=== PATIENT | female | born 2000 | race Hispanic/Latino ===

== ENCOUNTER 2022-11-01 13:36 | Emergency (ER) | payer SELFPAY ==
[2022-11-01 13:37] VITALS: BP 127/91; PULSE 71; RESP 16; TEMP 36.4; O2SAT 100; BMI 29.0
--- NOTE | 2022-11-01 14:18 | US_ITS ---
STUDY: FIRST TRIMESTER OBSTETRICAL ULTRASOUND REASON FOR EXAM: Female, 21 years old. Pelvic pain TECHNIQUE: Transvaginal US was obtained to better visualized the ovaries. TECHNICAL QUALITY: Adequate. PRIOR ULTRASOUND: None. FINDINGS: There is visualization of a single gestational sac in a normal intrauterine position. The mean sac diameter (MSD) measures 40 mm, indicating an estimated gestational age (EGA) of 9 weeks, 3 days. The gestational sac shape is within normal limits. There is a visualized yolk sac. The yolk sac measures 5.7 mm. The placenta is non-visualized. Due to early gestation, the placenta is not seen. There is visualization of a live embryo. The crown-rump length (CRL) measures 25 mm, indicating an estimated gestational age (EGA) of 9 weeks, 0 days. There is demonstrated cardiac activity with a heart rate of 180 bpm. The estimated gestation age (EGA) by LMP is 11 weeks, 0 days. The estimated date of delivery (EMILIANO) by LMP is 11.27.23. The estimated gestation age (EGA) by US is 9 weeks, 2 days. The estimated date of delivery (EMILIANO) by US is 12.9.23. The uterus measures 13.3x8.8 cm. There is no demonstrated uterine fibroid. The cervix is closed. Small subchorionic hemorrhage. The right ovary measures 3.6 cm. There is no right ovarian cyst. There is no visualized right adnexal mass or complex lesion. The left ovary measures 3.6 cm. There is 17mm left ovarian cyst. There is no visualized left adnexal mass or complex lesion. There is no fluid in the cul de sac. US/Transvaginal w/Preg US IMPRESSION: There is a single live intrauterine with a heart rate of 180 bpm. Small subchorionic hemorrhage. Electronically Signed: Talib Ramsay MD at 17:55 EDT ,
[2022-11-01 14:45] LABS: Bacteria 0 SEEN /hpf (None Seen); Mucous, Urine 0 SEEN /hpf (<or=2+); Red Blood Cells-Urine 0 SEEN /hpf (0-5)
[2022-11-01 14:47] LABS: Absolute Lymphocyte Count 2.89 X10^3/uL (0.83-4.51); Absolute Neutrophil Count 7.6 X10^3/uL (2.0-7.7); Basophil# 0.06 X10^3/uL; Basophil% 0.5 % (0-1); Eosinophils% 1.7 % (0-5); Hematocrit 39.2 % (37-47); Lymphocyte # 2.89 X10^3/ul (0.83-4.51); Lymphocyte % 25.2 % (19-41); Mean Corp Hgb Conc 33.2 g/dL (32-36); Mean Corpuscular Hgb 27.1 pg (27.0-32.0); Mean Corpuscular Volume 81.7 fL (81-99); Mean Platelet Vol. 9.1 fl (6.2-12.0); Monocyte# 0.71 X10^3/uL; Monocyte% 6.2 % (0-10); NRBC Flagged by Analyzer 0 % (0-5); Neutrophil # 7.59 X10^3/uL (2.7-7.7); Neutrophil % 66.1 % (47-70); Platelet Count 305 K/mm3 (150-450); RBC Distribution Width CV 13.6 % (11.6-14.6); RBC Distribution Width SD 40.5 fl (35.1-43.9); White Blood Count 11.5 K/mm3 (4.4-11.0)
[2022-11-01 14:53] LABS: Color, Urine Yellow (Yellow); Glucose, Dipstick Normal (Normal); Ketone-Dipstick Negative (Negative); Leukocyte Esterase-Dipstick Negative /ul (Negative); Nitrite-Dipstick Negative (Negative); Occult Blood-Urine Negative /ul (Negative); Protein-Dipstick Negative (Negative); Urine Bilirubin Dipstick Negative (Negative); Urine Clarity Clear (Clear); Urine Urobilinogen Normal (Normal)
[2022-11-01 14:59] LABS: Amorphous Sediment 2+; Squamous Epithelial Cells - UA 0-5 SEEN /hpf (5-10); White Blood Cells 0-5 SEEN /hpf (0-5)
[2022-11-01 15:08] LABS: ALB/GLOB Ratio 1.1 RATIO (0.9-2.4); AST(SGOT) 38 U/L (15-37); Alanine Aminotransfer ALT/SGPT 63 U/L (13-56); Albumin, Serum 3.8 g/dL (3.2-5.0); Alkaline Phosphatase 84 U/L (45-117); Anion Gap 7 (5-15); BUN 7 mg/dL (7-18); BUN/Creat Ratio 15.3 RATIO (10-20); Calcium,Total 9.9 mg/dL (8.5-10.1); Chloride 108 mmol/L (98-107); Creatinine, Serum 0.46 mg/dL (0.55-1.02); EST Glomerular Filtration Rate 182 mL/min (>60); Est Glom Filt Rate - Afr Amer 220 mL/min (>60); Estimated Creatinine Clearance 138.96 ml/min; Globulin 3.5 g/dL (2.2-4.2); Glucose 88 mg/dL (74-106); Potassium 3.8 mmol/L (3.5-5.1); Protein, Total 7.3 g/dL (6.4-8.2); Sodium Level 139 mmol/L (136-145)
--- NOTE | 2022-11-01 15:50 | EX.ED.DYSGE1 ---
HPI History of Present Illness Chief Complaint: Abd Pain Informant: patient and family Onset/Context/Timing Onset: Days (2) Context: Sudden Onset Timing: Intermittent Quality: Cramping Location: Lower abdomen Worsened by: Nothing Relieved by: Nothing Narrative Narrative: Patient presents with lower abdominal pain that has been getting worse over the past 2 days. Patient states it comes and goes. Patient describes it as cramping. Patient states it is mainly over the lower abdomen. Patient states nothing makes it better nothing makes it worse. Patient admits to some nausea but denies any vomiting. Patient denies any diarrhea, melena, or hematochezia. Patient denies any dysuria, frequency, or hematuria. Patient states she is but she has had no care. Patient denies any abnormal vaginal bleeding or discharge. PFSH PFSH Medical History no medical history no medical history Home Medications NK 11/01/22 [History Last Taken Unknown] Allergy/AdvReac Type Severity Reaction Status Date / Time No Known Allergies Allergy Verified 11/01/22 13:37 Surgical History no surgical history no surgical history Social History Smoking Status: Never smoker ROS ROS ED Constitutional Constitutional ED: Reports fever(s) and subjective; Denies chills Eyes Eyes: Denies blurry vision or change in vision ENT ENT ED: Denies rhinorrhea or sore throat Cardiovascular Cardiovascular: Denies chest pain or palpitations Respiratory/Chest Respiratory/Chest: Denies cough or dyspnea Gastrointestinal Gastrointestinal: Denies nausea or vomiting Genitourinary Genitourinary ED: Denies dysuria or hematuria Musculoskeletal Musculoskeletal: Reports neck pain; Denies back pain Integumentary Denies abscess or rash Neurologic Neurologic: Reports headache(s); Denies weakness Allergic/Immunologic Allergic/Immunologic ED: Denies mouth swelling or urticaria EXAM Physical Exam Const Vital Signs: 11/01/22 13:37 11/01/22 17:03 Temperature 97.6 F L Temperature Source Temporal Pulse Rate 71 Respiratory Rate 16 18 Blood Pressure 127/91 H Blood Pressure Mean 103 Pulse Ox 100 Oxygen Delivery Method Room Air Room Air Positive well nourished and well developed General Appearance ED: well developed HEENT Reports moist mucous membranes Neck supple and no JVD Resp normal respiratory effort and clear to auscultation bilaterally Cardio regular rate, regular rhythm and no murmurs GI normal to inspection, nondistended, normoactive bowel sounds GI Narrative: There is mild lower abdominal tenderness. There is a gravid uterus palpated. Palpation: soft and tender LLQ, RLQ and suprapubic; Negative for guarding or rebound tenderness present Extremity normal to inspection General Extremety ED: Negative for edema or tenderness General Extremity: Negative for edema Neuro oriented x3, CN's II-XII intact bilaterally and no sensory deficits noted Sensorium / Orientation: alert Motor Exam: strength 5/5 throughout Psych mental status grossly normal Skin no rashes or lesions noted MDM MDM MDM Narrative Medical decision making narrative: Differential diagnosis includes ectopic , urinary tract infection, gastroenteritis, and threatened miscarriage. CBC will be obtained to assess for leukocytosis and anemia. Comprehensive metabolic profile will be obtained to assess for hepatic function, renal function, and electrolyte abnormality. Urinalysis will be obtained to assess for urinary tract infection. Serum quantitative hCG will be obtained to assess for level. Blood type and Rh will be obtained to assess for the need for RhoGAM. Transvaginal ultrasound will be obtained to assess for viability of and to assess for ectopic . Lab Data Attestation: I reviewed the patient's lab results. Lab results narrative: CBC was reviewed. There is a mild leukocytosis of 11.5. This is most likely related. There is no anemia noted. Comprehensive metabolic profile was reviewed and was essentially within normal limits. Blood type was reviewed and is O+. Urinalysis was reviewed. There is no evidence of urinary tract infection or hematuria. Labs: Laboratory Results - last 24 hr 11/01/22 11/01/22 11/01/22 14:32 14:32 14:32 WBC 11.5 H RBC 4.80 Hgb 13.0 Hct 39.2 MCV 81.7 MCH 27.1 MCHC 33.2 RDW Std Deviation 40.5 RDW Coeff of Beau 13.6 Plt Count 305 MPV 9.1 Immature Gran % (Auto) 0.300 Neut % (Auto) 66.1 Lymph % (Auto) 25.2 [place] % (Auto) 6.2 Eos % (Auto) 1.7 Baso % (Auto) 0.5 Absolute Neuts (auto) 7.6 Absolute Lymphs (auto) 2.89 Nucleated RBC % 0 Sodium 139 Potassium 3.8 Chloride 108 H Carbon Dioxide 24.0 Anion Gap 7 BUN 7 Creatinine 0.46 L Estim Creat Clear Calc 138.96 Est GFR (MDRD) Af Amer 220 Est GFR (MDRD) Non-Af 182 BUN/Creatinine Ratio 15.3 Glucose 88 Calcium 9.9 Total Bilirubin 0.20 AST 38 H ALT 63 H Alkaline Phosphatase 84 Total Protein 7.3 Albumin 3.8 Globulin 3.5 Albumin/Globulin Ratio 1.1 HCG, Quant 49670 H Urine Color Urine Clarity Urine pH Ur Specific [place] Urine Protein Urine Glucose (UA) Urine Ketones Urine Occult Blood Urine Nitrite Urine Bilirubin Urine Urobilinogen Ur Leukocyte Esterase Urine RBC Urine WBC Ur Squamous Epith Cells Amorphous Sediment Urine Bacteria Urine Mucus Blood Type 11/01/22 11/01/22 14:32 14:32 WBC RBC Hgb Hct MCV MCH MCHC RDW Std Deviation RDW Coeff of Beau Plt Count MPV Immature Gran % (Auto) Neut % (Auto) Lymph % (Auto) [place] % (Auto) Eos % (Auto) Baso % (Auto) Absolute Neuts (auto) Absolute Lymphs (auto) Nucleated RBC % Sodium Potassium Chloride Carbon Dioxide Anion Gap BUN Creatinine Estim Creat Clear Calc Est GFR (MDRD) Af Amer Est GFR (MDRD) Non-Af BUN/Creatinine Ratio Glucose Calcium Total Bilirubin AST ALT Alkaline Phosphatase Total Protein Albumin Globulin Albumin/Globulin Ratio HCG, Quant Urine Color Yellow Urine Clarity Clear Urine pH 8.0 Ur Specific [place] 1.020 Urine Protein Negative Urine Glucose (UA) Normal Urine Ketones Negative Urine Occult Blood Negative Urine Nitrite Negative Urine Bilirubin Negative Urine Urobilinogen Normal Ur Leukocyte Esterase Negative Urine RBC 0 SEEN Urine WBC 0-5 SEEN Ur Squamous Epith Cells 0-5 SEEN Amorphous Sediment 2+ Urine Bacteria 0 SEEN Urine Mucus 0 SEEN Blood Type O POSITIVE Treatment and Re-Evaluation :: Patient was advised of her laboratory findings. Care of the patient will be turned over to the oncoming physician pending ultrasound results. Discharge Plan Triage Chief Complaint: Abd Pain ED Provider: Ezio Espinoza Dx/Rx/DC Orders Clinical Impression: Abdominal pain, Instructions: ED Abdominal Pain, Early Prescriptions: No Action NK Primary Care Provider: Care Physician,No Primary Referrals: Sarah Hawkins MD [Med Staff - Active Staff] - 5-7 Days Care Physician,No Primary [Primary Care Provider] -
[2022-11-01 17:03] VITALS: RESP 18
--- NOTE | 2022-11-01 17:06 | CM.ED ---
Social Work Note Referral Source: case find Referral Reason: no PCP/ insurance SW met with patient and patient's guest and introduced herself and role as [facility] Pyrometallurgical Engineer. Patient was lying on hospital bed and patient's guest was translating for patient. SW inquired if patient was okay to talk with SW using her friend to translate, patient shakes her head yes. SW inquired about patient's insurance and resource needs. Patient's friend explained they had previously attempted to apply for Medicaid, however, they were unable due to patient not having a social security number. SW discussed also providing a list of resources and highlighted programs for new mothers. Patient was receptive towards the application and resources, both resources provided were translated in [place]. SW remains available if additional needs arise. Tennille Villa MSW, BUD
--- NOTE | 2022-11-01 19:10 | ED.RN ---
Pt and instructor military science is irrate that she has not been helped. This RN assured pt and instructor military science that her results were in and unfortunately the ER is busy and it takes time for results This RN reminded her that she had lab work that took time to result as well as imaging. The pt instructor military science was talking loudly and said she's been here 8 fucking hours. This RN informed them that she checked into triage at 13:37 and that it has not been 8 hours and that an average wait time when the ED is busy can expect to last 6 to 8 hours. This RN reiterated that her results were in and that the MD would be in to discuss them with her. The pt's instructor military science said to take the fucking IV out, we're leaving. This RN removed IV and pt and instructor military science left ama.
== END 2022-11-01 19:10 | disposition left against medical advice (07) ==
PROVIDERS: Emergency Provider Emergency Medicine; Visit Provider Emergency Medicine
DX: O99.891 Other specified diseases and conditions complicating pregnancy (principal); R10.9 Unspecified abdominal pain; R11.0 Nausea; R50.9 Fever, unspecified; M54.2 Cervicalgia; Z3A.00 Weeks of gestation of pregnancy not specified
CPT/HCPCS: 76817; 80053; 81001; 84702; 85025; 86900; 86901; 99281; A4216